=== PATIENT | male | born 1955 | race Hispanic/Latino ===

== ENCOUNTER 2021-01-28 21:19 | Emergency (ER) | payer OTHER ==
[2021-01-28] MEDS ORDERED: ETOMIDATE 20 MG/10 ML VIAL IV ONE (21:20)
[2021-01-28] MEDS ORDERED: ATROPINE SULF 1 MG/10 ML SYR IV ONE (21:20)
[2021-01-28] MEDS ORDERED: NA CHLORIDE 0.9% 1,000 ML IV ONE (21:20)
[2021-01-28] MEDS ORDERED: AMIODARONE HCL 150 MG/3 ML INJ IV ONE (21:20)
[2021-01-28] MEDS ORDERED: Caclcium Chloride 10% INJ SYR IV ONE (21:20)
[2021-01-28] MEDS ORDERED: EPINEPHrine 1 MG/10 ML SYR IV ONE (21:20)
[2021-01-28] MEDS ORDERED: SUCCINYLCHOLINE 20 MG/ML (10 ML) IV ONE (21:20)
[2021-01-28] MEDS ORDERED: ROCURONIUM 50 MG/5 ML VIAL IV ONE (21:20)
[2021-01-28] MEDS ORDERED: RSI MEDICATION KIT IV ONE (21:40)
[2021-01-28] MEDS ORDERED: MIDAZOLAM HCL 2 MG/2 ML INJ ONE (21:46)
[2021-01-28] MEDS ORDERED: EPINEPHRINE/PF 1 MG/ML AMP ONE ×2 (21:55→22:40)
[2021-01-28] MEDS ORDERED: NA CHLORIDE 0.9% 100 ML ONE (21:56)
[2021-01-28] MEDS ORDERED: DOPAMINE/D5W 400 MG/250 ML BAG IV ONE (22:13)
[2021-01-28] MEDS ORDERED: NOREPINEPHRINE 4mg/D5W 250mL 4 MG/250 ML BAG IV ONE (22:13)
[2021-01-28] MEDS ORDERED: EPINEPHrine 1 MG/10 ML SYR ONE ×2 (22:15→22:36)
[2021-01-28 22:26] LABS: Absolute Lymphocytes (CBC) 4.6 K/uL (0.7-4.9); Basophils % 0.5 % (0-1.3); Hematocrit 43.7 % (39.6-49.0); Lymphocytes % 36.1 % (15.3-44.8); MPV 10.3 fL (7.6-11.3); RBC Red Blood Cell Count 4.93 M/uL (4.33-5.43)
[2021-01-28 22:30] LABS: Protime INR 1.21
--- NOTE | 2021-01-28 22:50 | ER ---
Nurse's Notes [facility] Name: Ozzy Fitzpatrick Age: 65 yrs Sex: Male : 1955 Arrival Date: 01/28/2021 Time: 21:21 Bed 2 Private MD: Diagnosis: Unspecified combined systolic (congestive) and diastolic (congestive) heart failure;Respiratory arrest;Cardiac arrest;Pneumothorax, unspecified-CPR INDUCED Presentation: 01/28 21:15 Chief complaint: EMS states: patient was having difficulty breathing started an hour mg2 ago,. he has been diaphoretic, pale, cool and clammy, low O2 sat \T\ 80% RA and 93% via NRM. given solu medrol 125 mg and albuterol/atrovent nebulization. Coronavirus screen: Client presents with at least one sign or symptom that may indicate coronavirus-19. Ebola Screen: No symptoms or risks identified at this time. Initial Sepsis Screen: Does the patient meet any 2 criteria? Does the patient have a suspected source of infection? No. Patient's initial sepsis screen is negative. Risk Assessment: Do you want to hurt yourself or someone else? Patient reports no desire to harm self or others. Onset of symptoms. 21:15 Method Of Arrival: EMS: [facility] mg2 21:15 Acuity: CANDIDA 1 mg2 Triage Assessment: 21:15 General: Appears distressed. Pain: Denies pain. Respiratory: Reports shortness of mg2 breath at rest Onset: The symptoms/episode began/occurred suddenly, the patient has severe shortness of breath. Historical: - Allergies: 21:15 No Known Allergies; mg2 - Home Meds: 21:15 None [Active]; mg2 - PMHx: 21:15 Hypertension; mg2 - PSHx: 21:15 Unable to obtain; mg2 - Immunization history:: Flu vaccine status is unknown. - Family history:: not pertinent. - Social history:: Smoking status: unknown. Screenin:15 Fall Risk IV access (20 points). mg2 22:29 Abuse screen: Denies threats or abuse. Denies injuries from another. Nutritional mg2 screening: No deficits noted. Tuberculosis screening: No symptoms or risk factors identified. Assessment: 21:26 Reassessment: no pulse, CPR initiated. em 21:29 Reassessment: pt in pulseless v-fib, shock delivered at 200 J, CPR continued. em 21:33 Reassessment: no palpable central pulse, CPR continued. em 21:33 Reassessment: pulseless v-fib on monitor, shock delivered at 200 J, CPR continued. em 21:36 Reassessment: no palpable central pulse, CPR continued. em 21:38 Reassessment: no palpable central pulse, CPR continued. em 21:39 Reassessment: pulseless v-fib on the monitor, shock delivered at 200 J, CPR continued. em 21:43 Reassessment: pulseless v-fib on the monitor, shock delivered at 200 J, CPR continued. em 21:47 Reassessment: EKG and chest x-ray completed. em 21:49 Reassessment: NGT inserted in the the left nare. em 21:59 Reassessment: no palpable central pulse, CPR continued. em 22:03 Reassessment: repeat chest x-ray done. em 22:07 Reassessment: no palpable central pulse, CPR continued. em 22:11 Reassessment: no palpable central pulse, CPR continued. em 22:16 Reassessment: no palpable central pulse, CPR continued. em 22:19 Reassessment: no palpable central pulse, CPR continued. em 22:22 Reassessment: no palpable central pulse, CPR continued. em 22:27 Reassessment: no palpable central pulse, CPR continued. em 22:29 General: see triage note. mg2 22:30 Reassessment: no palpable central pulse, CPR continued. em 23:24 Reassessment: [facility] contacted- spoke to Sona and said patient is not a candidate mg2 for organ donation due to possible sepsis- case [facility]# [id number]. 23:39 Reassessment:. em 01/29 00:28 Reassessment: body taken by Osmar Tubbs of [facility], police cadet also mg2 came \T\ 2350H. Vital Signs: 01/28 21:15 BP 107 / 84; Pulse 156; Resp 25; Temp 98.7; Pulse Ox 80% on Non-rebreather mask; mg2 21:26 Temp 99.9(R); em 22:02 BP 78 / 62; Pulse 78; Resp 20 A; Pulse Ox 100% on ETT ambu; em ED Course: 21:18 Maintain EMS IV. Dressing intact. Good blood return noted. Site clean \T\ dry. Gauge \T\ mg 2 site: 20 \T\ LAC. 21:21 Patient arrived in ED. mw2 21:26 Assisted provider with central line placement. Set up central line tray. Triple lumen em line placed in right femoral. Line placed by Harish Altman installation engineer verified by blood return, Dressed with 4X4s, Tape, Tegaderm, Blood was collected. Was handwashing/sanitizing done immediately prior to procedure? Yes. Was patient positioned to in a way to prevent air embolism? Yes. Was procedure site sterilized? Yes, with chlorhexidine. Was the site allowed to dry? Yes. Was local anesthetic and/or sedation utilized? No. During the procedure, did the Practitioner(s) maintain a sterile field? Yes. Were unused ports clamped during insertion? Yes. Was a 2nd qualified MD obtained after 3 unsuccessful insertion attempts? No. Was blood aspirated from each lumen? Yes. After the procedure, did the Practitioner(s) clean the site and apply a sterile dressing? Yes. 21:30 Inserted saline lock: 20 gauge in left forearm, using aseptic technique. em 21:47 patient's sister Alida Fitzpatrick [phone]. mw2 21:53 Tomas Jacobsen MD is Attending Physician. debbie 22:04 XRAY Chest (1 view) In Process Unspecified. EDMS 22:12 Chest Single View XRAY In Process Unspecified. EDMS 22:18 Harish Altman, RN is Primary Nurse. mg2 22:26 Triage completed. mg2 22:30 Patient has correct armband on for positive identification. mg2 22:37 Police notified [facility] to send an officer and to call out the director of medicare for the mw2 patient's . 22:46 Tomas Jacobsen MD is Pronouncing Provider. debbie Administered Medications: 21:26 Drug: EPINEPHrine 0.1mg/mL 1:10,000 1 mg Route: IVP; Site: right jugular; em 21:26 Drug: Atropine 1 mg Route: IVP; Site: right jugular; em 21:26 Drug: Sodium Bicarbonate 1 amp Route: IVP; Site: right jugular; em 21:26 Drug: Calcium Chloride 1 grams Route: IVP; Site: right jugular; em 21:30 Drug: EPINEPHrine 0.1mg/mL 1:10,000 1 mg Route: IVP; Site: right femoral; em 21:33 Drug: EPINEPHrine 0.1mg/mL 1:10,000 1 mg Route: IVP; Site: right femoral; em 21:33 Drug: NS 0.9% 1000 ml Route: IV; Rate: 1000 ml; Site: right femoral; em 21:33 Drug: Sodium Bicarbonate 1 amp Route: IVP; Site: right femoral; em 21:38 Drug: EPINEPHrine 0.1mg/mL 1:10,000 1 mg Route: IVP; Site: right femoral; em 21:41 Drug: EPINEPHrine 0.1mg/mL 1:10,000 1 mg Route: IVP; Site: right femoral; em 21:44 Drug: amiodarone 300 mg Route: IVP; Site: right femoral; em 21:46 Drug: EPINEPHrine 0.1mg/mL 1:10,000 1 mg Route: IVP; Site: right femoral; em 21:55 Drug: Versed 4 mg Route: IVP; Site: right forearm; em 21:57 Drug: EPINEPHrine 0.1mg/mL 1:10,000 1 mg Route: IVP; Site: right forearm; em 21:58 Drug: Sodium Bicarbonate 1 amp Route: IVP; Site: right femoral; em 22:00 Drug: EPINEPHrine 0.1mg/mL 1:10,000 1 mg Route: IVP; Site: right femoral; em 22:05 Drug: Levophed (4 mg/250 mL D5W 4 mcg/min Route: IV; Rate: calculated rate; Site: right mg2 femoral; 22:10 Drug: Dopamine drip 5 mcg/kg/min - (DOPamine 400 mg, D5W 250 ml) Route: IV; Rate: mg2 calculated rate; Site: right femoral; 22:12 Drug: EPINEPHrine 0.1mg/mL 1:10,000 1 mg Route: IVP; Site: right femoral; em 22:15 Drug: EPINEPHrine 0.1mg/mL 1:10,000 1 mg Route: IVP; Site: right femoral; em 22:18 Drug: EPINEPHrine 0.1mg/mL 1:10,000 1 mg Route: IVP; Site: right femoral; em 22:23 Drug: EPINEPHrine 0.1mg/mL 1:10,000 1 mg Route: IVP; Site: right femoral; em 22:26 Drug: EPINEPHrine 0.1mg/mL 1:10,000 1 mg Route: IVP; Site: right femoral; em : Not Given (Physician Discretion): ProTONIX 40 mg IVP once em : Not Given (Physician Discretion): Zosyn 3.375 grams IVPB once over 60 mins; (mix in NS em 100 mL) Point of Care Testing: Blood Glucose: :30 Blood Glucose: 409 mg/dL; em Ranges: Outcome: Patient : Time of mg2 Condition: 01/29 00:29 Patient left the ED. mg2 Signatures: Dispatcher [employer] EDTomas Ruth MD MD cha Munoz, Edgar, RN RN Zita Dyer [facility] Harish Altman RN RN mg2 Corrections: (The following items were deleted from the chart) 01/28 22:48 21:56 Reassessment: no pulse, CPR initiated em em 23:16 21:29 Reassessment: pt in pulseless v-fib, shocked delivered at 200 J, CPR continuted emem
--- NOTE | 2021-01-28 22:50 | EDPHYS ---
Physician Documentation [facility] Name: Ozzy Fitzpatrick Age: 65 yrs Sex: Male : 1955 Arrival Date: 01/28/2021 Time: 21:21 Bed 2 Private MD: ED Physician Tomas Jacobsen HPI: 01/28 22:08 This 65 yrs old Male presents to ER via Unassigned with complaints of debbie Respiratory Distress. 22:08 The patient has shortness of breath at rest. Onset: The symptoms/episode began/occurred debbie just prior to arrival. Duration: The symptoms are continuous, but are steadily getting better. The patient's shortness of breath has no apparent modifying factors. Preceding the arrest, the patient collapsed, was dyspneic. The arrest occurred in the hospital. Pre-hospital course: EMS care prior to arrival: Other SEE REPORTS. Associated signs and symptoms: Pertinent positives: non-productive cough. Severity of symptoms: At their worst the symptoms were severe. Historical: - Allergies: 21:15 No Known Allergies; mg2 - Home Meds: 21:15 None [Active]; mg2 - PMHx: 21:15 Hypertension; mg2 - PSHx: 21:15 Unable to obtain; mg2 - Immunization history:: Flu vaccine status is unknown. - Family history:: not pertinent. - Social history:: Smoking status: unknown. ROS: 22:08 Unable to obtain ROS due to patient is on ventilator. debbie Exam: 22:08 Eyes: Periorbital structures: appear normal, Pupils: are fixed and dilated. debbie 22:08 Cardiovascular: Rate: actual rate is 0 bpm, Rhythm: pea, Pulses: not palpable, Heart sounds: none, Edema: is not appreciated, JVD: is noted bilaterally, to the angle of the jaw. 22:08 Respiratory: Respiratory rate: zero spontaneous 22:42 Chest/axilla: rib fracture during cpr, moderate sq emphysema.. debbie Vital Signs: 21:15 BP 107 / 84; Pulse 156; Resp 25; Temp 98.7; Pulse Ox 80% on Non-rebreather mask; mg2 21:26 Temp 99.9(R); em 22:02 BP 78 / 62; Pulse 78; Resp 20 A; Pulse Ox 100% on ETT ambu; em Procedures: 22:44 Intubation: with 7.5 mm ETT. was successful on first attempt. Ventilated with Ambu bag. debbie Placement verified by CO2 detector with (+) color change, auscultating bilateral breath sounds. Central Line: the site was prepped with Betadine, in sterile fashion, a triple lumen catheter was inserted, in the right in 1 attempts. placement was verified, by blood return, the site was dressed with 4X4s, using sterile technique, the patient tolerated the procedure, well. MDM: 22:05 Patient medically screened. debbie 22:49 Differential diagnosis: CHF exacerbation, cardiac arrest, respiratory arrest, Pulmonary debbie Embolism. Data reviewed: vital signs, nurses notes, EMS record, EKG, radiologic studies, plain films. 01/28 21:43 Order name: Glucose, Ancillary Testing; Complete Time: 22:04 EDMI 01/28 21:58 Order name: Basic Metabolic Panel [facility] 01/28 21:58 Order name: CBC with Diff [facility] 01/28 21:58 Order name: LFT's [facility] 01/28 21:58 Order name: Magnesium [facility] 01/28 21:58 Order name: NT PRO-BNP [facility] 01/28 21:58 Order name: PT-INR [facility] 01/28 21:58 Order name: Troponin (emerg Dept Use Only) [facility] 01/28 21:58 Order name: Lipase [facility] 01/28 21:58 Order name: ABG [facility] 01/28 21:58 Order name: Lactate [facility] 01/28 21:58 Order name: Basic Metabolic Panel [facility]MI 01/28 21:58 Order name: XRAY Chest (1 view) [facility] 01/28 21:58 Order name: CBC with Automated Diff [facility] 01/28 21:58 Order name: Liver (Hepatic) Function [facility] 01/28 21:58 Order name: Magnesium [facility] 01/28 21:58 Order name: NT PRO-BNP [facility] 01/28 21:58 Order name: Protime (+INR) [facility] 01/28 22:07 Order name: Chest Single View XRAY [facility] 01/28 22:29 Order name: Manual Differential [facility] 01/28 21:58 Order name: EKG; Complete Time: 21:59 [facility] 01/28 21:58 Order name: Cardiac monitoring; Complete Time: 22:28 [facility] 01/28 21:58 Order name: EKG - Nurse/Tech; Complete Time: 23:07 [facility] 01/28 21:58 Order name: IV Saline Lock; Complete Time: 23:07 [facility] 01/28 21:58 Order name: Labs collected and sent; Complete Time: 23:08 [facility] 01/28 21:58 Order name: O2 Per Protocol; Complete Time: :28 [facility] 01/28 21:58 Order name: O2 Sat Monitoring; Complete Time: :28 [facility] 01/28 22:07 Order name: Central Line Kit; Complete Time: 23:07 [facility] Administered Medications: 21:26 Drug: EPINEPHrine 0.1mg/mL 1:10,000 1 mg Route: IVP; Site: right jugular; em 21:26 Drug: Atropine 1 mg Route: IVP; Site: right jugular; em 21:26 Drug: Sodium Bicarbonate 1 amp Route: IVP; Site: right jugular; em 21:26 Drug: Calcium Chloride 1 grams Route: IVP; Site: right jugular; em 21:30 Drug: EPINEPHrine 0.1mg/mL 1:10,000 1 mg Route: IVP; Site: right femoral; em 21:33 Drug: EPINEPHrine 0.1mg/mL 1:10,000 1 mg Route: IVP; Site: right femoral; em 21:33 Drug: NS 0.9% 1000 ml Route: IV; Rate: 1000 ml; Site: right femoral; em 21:33 Drug: Sodium Bicarbonate 1 amp Route: IVP; Site: right femoral; em 21:38 Drug: EPINEPHrine 0.1mg/mL 1:10,000 1 mg Route: IVP; Site: right femoral; em 21:41 Drug: EPINEPHrine 0.1mg/mL 1:10,000 1 mg Route: IVP; Site: right femoral; em 21:44 Drug: amiodarone 300 mg Route: IVP; Site: right femoral; em 21:46 Drug: EPINEPHrine 0.1mg/mL 1:10,000 1 mg Route: IVP; Site: right femoral; em 21:55 Drug: Versed 4 mg Route: IVP; Site: right forearm; em 21:57 Drug: EPINEPHrine 0.1mg/mL 1:10,000 1 mg Route: IVP; Site: right forearm; em 21:58 Drug: Sodium Bicarbonate 1 amp Route: IVP; Site: right femoral; em 22:00 Drug: EPINEPHrine 0.1mg/mL 1:10,000 1 mg Route: IVP; Site: right femoral; em 22:05 Drug: Levophed (4 mg/250 mL D5W 4 mcg/min Route: IV; Rate: calculated rate; Site: right mg2 femoral; 22:10 Drug: Dopamine drip 5 mcg/kg/min - (DOPamine 400 mg, D5W 250 ml) Route: IV; Rate: mg2 calculated rate; Site: right femoral; 22:12 Drug: EPINEPHrine 0.1mg/mL 1:10,000 1 mg Route: IVP; Site: right femoral; em 22:15 Drug: EPINEPHrine 0.1mg/mL 1:10,000 1 mg Route: IVP; Site: right femoral; em 22:18 Drug: EPINEPHrine 0.1mg/mL 1:10,000 1 mg Route: IVP; Site: right femoral; em 22:23 Drug: EPINEPHrine 0.1mg/mL 1:10,000 1 mg Route: IVP; Site: right femoral; em 22:26 Drug: EPINEPHrine 0.1mg/mL 1:10,000 1 mg Route: IVP; Site: right femoral; em 22:51 Not Given (Physician Discretion): ProTONIX 40 mg IVP once em 22:51 Not Given (Physician Discretion): Zosyn 3.375 grams IVPB once over 60 mins; (mix in NS em 100 mL) Point of Care Testing: Blood Glucose: 21:30 Blood Glucose: 409 mg/dL; em Ranges: Critical Glucose Levels:Adult <50 mg/dl or >400 mg/dl <40 mg/dl or >180 mg/dl Disposition: Patient pronounced on 01/28/21 22:31 by Tomas Jacobsen. Impression: Unspecified combined systolic (congestive) and diastolic (congestive) heart failure, Respiratory arrest, Cardiac arrest, Pneumothorax, unspecified - CPR INDUCED. - Released to Home. Signatures: Dispatcher [employer] EDMI Tomas Jacobsen MD MD cha Munoz, Edgar, RN RN Harish Godwin RN RN mg2 Corrections: (The following items were deleted from the chart) 22:00 21:59 Chest Single View ordered. EDMI EDMS 22:35 21:59 Head Brain Wo Cont+CT.RAD.BRZ ordered. EDMI EDMS 22:35 22:08 Thorax Wo Con+CT.RAD.BRZ ordered. EDMI EDMS 01/29 00:29 01/28 22:49 01/28/2021 22:49 Patient pronounced on 01/28/2021 at 22:31 by ada Jacobsen. Impression: Unspecified combined systolic (congestive) and diastolic (congestive) heart failure; Respiratory arrest; Cardiac arrest; Pneumothorax, unspecified - CPR INDUCED. Released to Home. debbie
[2021-01-28 22:55] LABS: Albumin 1.9 g/dL (3.4-5.0); Bilirubin Direct 0.1 mg/dL (0-0.2); Bilirubin Total 0.6 mg/dL (0.2-1.0); Protein, Total 4.5 g/dL (6.4-8.2)
[2021-01-28 22:56] LABS: Magnesium 1.9 mg/dL (1.8-2.4); Potassium 3.1 mmol/L (3.5-5.1); Troponin (Emerg Dept Use Only) 2.47 ng/mL (0.0-0.045)
[2021-01-29 01:12] LABS: Blood Morphology Comment NOT SEEN (NOT SEEN); Platelet Estimate ADEQ
[2021-01-29 01:52] VITALS: TEMP 99.9
[2021-01-29 01:53] VITALS: BP 78/62; O2SAT 100
--- NOTE | 2021-01-29 07:03 | EKG ---
Test Date: 2021-01-28 Test Time: 21:55:03 Extension Service Specialist: COLT MEASUREMENT RESULTS: Intervals: Rate: 42 HI: QRSD: 106 QT: 454 QTc: 379 [place]: P: HI: QRS: -51 T: 58 INTERPRETIVE STATEMENTS: Marked sinus bradycardia with AV dissociation and Junctional bradycardia Left axis deviation Low voltage QRS Cannot rule out Anteroseptal infarct, age undetermined Inferolateral injury pattern ACUTE [place] / STEMI Consider right ventricular involvement in acute inferior infarct Abnormal ECG No previous ECG available for comparison Electronically Signed On 01-29-21 07:02:18 CDT by Mo Alarcon
--- NOTE | 2021-01-29 11:06 | RAD REPORT ---
EXAM DESCRIPTION: RAD - Chest Single View - 01/28/2021 10:12 pm CLINICAL HISTORY: POSTINTUBATION. COMPARISON: Chest radiograph from today at 2148 hours. TECHNIQUE: Single view AP chest radiograph(s). FINDINGS: Redemonstration of the medium sized left basilar pneumothorax, and displaced fracture of t he adjacent lateral left rib. Enteric tube terminates in the stomach. Endotracheal tube terminates in the mid trachea. Moderate hazy pulmonary opacification bilaterally. Moderate amount of left chest wa ll subcutaneous emphysema. No pleural effusion. Nonenlarged cardiomediastinal silhouette. IMPRESSION: Redemonstration of the medium sized left basilar pneumothorax and adjacent displaced lef t lateral rib fracture. Moderate left chest wall subcutaneous emphysema. Due to temporary technical issues with the PACS/Fluency reporting system, reports are being signed by the in house radiologist without review as a courtesy to ensure prompt reporting. The interpreting r adiologist is fully responsible for the content of the report.
--- NOTE | 2021-01-29 11:07 | RAD REPORT ---
EXAM DESCRIPTION: RAD - Chest Single View - 01/28/2021 10:03 pm ADDENDUM #1 THIS REPORT CONTAINS FINDINGS THAT MAY BE CRITICAL TO PATIENT CARE: The findings were verbally discu ssed via telephone conference with Dr. Tomas Jacobsen on 01/28/2021 10:25 PM CDT. The results were ack nowledged and understood. Of note, there is no mediastinal shift identified. Electronically signed by: Keke Lee MD 01/28/2021 10:26 PM CDT End of Addendum EXAM DESCRIPTION: Chest Single View RadLex: XR CHEST 1 VIEW CLINICAL HISTORY: DYSPNEA. COMPARISON: None. TECHNIQUE: Single view AP chest radiograph(s). FINDINGS: Endotracheal tube terminates in the mid trachea, approximately 5.1 cm above the molina. Th e enteric tube terminates in the stomach. Deepening of the left costophrenic sulcus, concerning for a left-sided basilar pneumothorax. A defibrillator pad overlies the right upper lung. Moderate hazy op acification in both lungs, worse on the right. Nonenlarged cardiomediastinal silhouette. Acute displa jefferson left lateral fifth rib fracture. IMPRESSION: 1. Acute displaced left lateral fifth rib fracture with a basilar left-sided pneumotho rax. 2. Moderate hazy pulmonary opacification bilaterally. 3. Well-positioned endotracheal and enteric tubes. Electronically signed by: Keke Lee MD 01/28/2021 10:19 PM CDT Due to temporary technical issues with the PACS/Fluency reporting system, reports are being signed by the in house radiologist without review as a courtesy to ensure prompt reporting. The interpreting r adiologist is fully responsible for the content of the report.
== END 2021-01-29 00:29 | disposition expired ==
LOC: ER 21:19
DX: I46.9 Cardiac arrest, cause unspecified (principal); I50.40 Unspecified combined systolic (congestive) and diastolic (congestive) heart failure; S27.0XXA Traumatic pneumothorax, initial encounter; S22.32XA Fracture of one rib, left side, initial encounter for closed fracture; X58.XXXA Exposure to other specified factors, initial encounter; I10 Essential (primary) hypertension
CPT/HCPCS: 93005; 85025; 80048; 36415; 83735; 85610; 82947; 80076; 83605; 84484; 83690; 83880; 71045 ×2; 31500; 99291; J0171 ×4; J0330; J0282; J2250; J1265; J7030